=== PATIENT | female | born 1950 | race Caucasian/White ===

== ENCOUNTER → 2018-12-04 | Outpatient (CLI) | payer OTHER, MEDICARE | LOC: FIMAGING 10:57 | PROVIDERS: ATTEND Physician Assistant | DX: M51.36 Other intervertebral disc degeneration, lumbar region (principal); M48.061 Spinal stenosis, lumbar region without neurogenic claudication; M43.16 Spondylolisthesis, lumbar region; M53.86 Other specified dorsopathies, lumbar region; R93.5 Abnormal findings on diagnostic imaging of other abdominal regions, including retroperitoneum ==

== ENCOUNTER → 2019-01-05 | Outpatient (CLI) | payer OTHER, MEDICARE | LOC: FIMAGING 09:32 | PROVIDERS: ATTEND Internal Medicine | DX: K76.9 Liver disease, unspecified (principal); K86.9 Disease of pancreas, unspecified; I70.0 Atherosclerosis of aorta ==

== ENCOUNTER → 2019-01-11 | Outpatient (CLI) | payer OTHER, MEDICARE ==
[~2019-01-11] MED LIST: IOPAMIDOL (ISOVUE-300) 100 ML BTL ONE
== END ==
LOC: FIMAGING 09:18
PROVIDERS: ATTEND Internal Medicine
DX: K76.9 Liver disease, unspecified (principal); K83.8 Other specified diseases of biliary tract; K86.9 Disease of pancreas, unspecified
CPT/HCPCS: 74177; Q9967; 82565-PO

== ENCOUNTER 2019-03-01 07:15 | Inpatient (IN) | payer OTHER, MEDICARE ==
[2019-03-08] MEDS ORDERED: ceFAZolin 2 GM/DEXTROSE 100 ML IV ONE (06:05)
[2019-03-08] MEDS ORDERED: ACETAMINOPHEN 500 MG TAB PO ONE (06:05)
[2019-03-08] MEDS ORDERED: GABAPENTIN 300 MG CAP PO ONE (06:05)
[2019-03-08] MEDS ORDERED: LR 1,000 ML IV ONE (06:10)
[2019-03-08] MEDS ORDERED: BUPIVACAINE/EPI 0.25% 30 ML SDV ONE (06:26)
[2019-03-08] MEDS ORDERED: BACITRACIN 50,000 UNITS/10 ML SYR IRR ONE (06:26)
[2019-03-08] MEDS ORDERED: THROMBIN (BOVINE) 20,000 UNIT VIAL TP ONE (06:26)
[2019-03-08] MEDS ORDERED: CHLORHEXIDINE GLUC HIBICLENS 118 ML BTL TP ONE (06:26)
[2019-03-08] MEDS ORDERED: ACETAMN/DIPHENHYDRAMINE 500/25MG TAB PO PRN (06:29)
--- NOTE | 2019-03-08 06:29 | PDHPUP ---
History & Physical Update H&P update statement: This history and physical update is based on an assessment of the patient which was completed after admission or registration (within 24 hours), but prior to the surgery/procedure. H&P update: H&P reviewed & patient examined, no change in patient's condition since H&P completed
--- NOTE | 2019-03-08 06:38 | PDANEPAE ---
ANE Past Medical History - Cardiovascular History Hx Hypertension: No Hx Arrhythmias: No Hx Chest Pain: No Hx Coronary Artery / Peripheral Vascular Disease: Yes Hx CHF / Valvular Disease: Yes Hx Palpitations: No Cardiovascular History Comment: Mitral valve regurgitation, no surgery, no alarm mechanism adjuster follow up. Aortic artery concerns with PCP, pt does not have diagnosis yet. - Pulmonary History Hx COPD: No Hx Asthma/Reactive Airway Disease: No Hx Recent Upper Respiratory Infection: No Hx Oxygen in Use at Home: No Hx Sleep Apnea: No - Neurologic History Hx Cerebrovascular Accident: No Hx Seizures: No Hx Dementia: No - Endocrine History Hx Diabetes: No Hypothyroid: No Hyperthyroid: No Obesity: no - Renal History Hx Renal Disorders: No - Liver History Hx Hepatic Disorders: No - Neurological & Psychiatric Hx Hx Neurological and Psychiatric Disorders: Yes Neurological / Psychiatric History Comment: Mild depression. - Cancer History Hx Cancer: No - Congenital Disorder History Hx Congenital Disorders: No - GI History GERD: no Hx Gastrointestinal Disorders: No - Other Health History Other Health History: None. - Chronic Pain History Chronic Pain: Yes - Surgical History Prior Surgeries: Total R hip replacement ~2003. R RTC surgery ~2012. L thumb/ wrist surgery ~2013. L wrist fracture with hardware and subsequent hardware removal. ~2013 ANE Review of Systems Review of Systems: - Exercise capacity Exercise capacity: >=4 METS, limited by disability METS (RN): 4 METS ANE Patient History - Allergies Allergies/Adverse Reactions: celecoxib [From Celebrex] Allergy (Verified 03/08/19 07:03) Hives Sulfa (Sulfonamide Antibiotics) Allergy (Verified 02/28/19 14:44) Rash - Home Medications Home Medications: Diclofenac Sodium [Voltaren-XR] 100 mg PO DAILY PRN 02/28/19 [Last Taken ] Meloxicam 7.5 - 15 mg PO DAILY PRN 02/28/19 [Last Taken 03/02/19] buPROPion XL [Wellbutrin Xl] 150 mg PO DAILY 02/28/19 [Last Taken 03/08/19] Acetaminophen [Tylenol Extra Strength] 1,000 mg PO DAILY 03/03/19 [Last Taken ] Acetamn/Diphenhydramine 500/25 [Tylenol PM (*)] 1 each PO HS PRN 03/03/19 [Last Taken 03/02/19] - Anes Hx Anes Hx: no prior problems - Smoking Hx Smoking Status: Never smoked Marijuana use: No - Alcohol Use Alcohol Use: Occasionally - Family Anes Hx Family Anes Hx: neg - N/A Family Hx Anesthesia Complications: Unknown. ANE Labs/Vital Signs - Vital Signs Height: 167.64 cm Weight: 54.431 kg ANE Physical Exam - Airway Neck exam: FROM Mallampati Score: Class 2 Mouth exam: normal dental/mouth exam - Pulmonary Pulmonary: no respiratory distress, no rales or rhonchi, clear to auscultation - Cardiovascular Cardiovascular: regular rate and rhythym, no murmur, rub, or gallop - ASA Status ASA Status: II ANE Anesthesia Plan Anesthesia Plan: general endotracheal anesthesia Total IV Anesthesia: No
[2019-03-08] MEDS ORDERED: MIDAZOLAM 2 MG/2 ML VIAL IVP ONE (06:54)
[2019-03-08] MEDS ORDERED: fentaNYL 100 MCG/2 ML INJ ONE ×3 (07:11→11:39)
[2019-03-08] MEDS ORDERED: PROPOFOL 200 MG/20 ML VIAL ONE (07:12)
[2019-03-08] MEDS ORDERED: ONDANSETRON 4 MG/2 ML VIAL ONE (07:13)
[2019-03-08] MEDS ORDERED: DEXAMETHASONE 4 MG/ML VIAL ONE (07:13)
[2019-03-08] MEDS ORDERED: PROPOFOL/EMULSION 500 MG/50 ML BOTTLE IV ONE (07:13)
[2019-03-08] MEDS ORDERED: ROCURONIUM 50 MG/5 ML VIAL ONE (07:13)
[2019-03-08] MEDS ORDERED: LIDOCAINE 2% 5 ML SDV ONE (07:18)
[2019-03-08] MEDS ORDERED: REMIFENTANIL HCL 1 MG VIAL ONE (07:36)
[2019-03-08] MEDS ORDERED: diphenhydrAMINE 25 MG CAP PO PRN (07:53)
[2019-03-08] MEDS ORDERED: MAGNESIUM HYDROXIDE 30 ML UDCUP PO PRN (07:53)
[2019-03-08] MEDS ORDERED: BISACODYL 10 MG SUPP PR PRN (07:53)
[2019-03-08] MEDS ORDERED: HYDROmorphONE/DILAUDID 1 MG/ML INJ IVP PRN (07:53)
[2019-03-08] MEDS ORDERED: ONDANSETRON DISINTEGRATING 4 MG TAB PO PRN (07:53)
[2019-03-08] MEDS ORDERED: ONDANSETRON 4 MG/2 ML VIAL IVP PRN ×2 (07:53→07:57)
[2019-03-08] MEDS ORDERED: LACTULOSE 20 GM/30 ML UDCUP PO PRN (07:53)
[2019-03-08] MEDS ORDERED: morphINE PCA 30 MG/30 ML PCA IV PRN (07:53)
[2019-03-08] MEDS ORDERED: NALOXONE HCL 0.4 MG/ML INJ IVP PRN ×2 (07:53→07:57)
[2019-03-08] MEDS ORDERED: PROMETHAZINE HCL 25 MG/ML INJ IVP PRN (07:57)
[2019-03-08] MEDS ORDERED: ACETAMINOPHEN 500 MG TAB PO PRN (07:57)
[2019-03-08] MEDS ORDERED: MEPERIDINE 25 MG/0.5 ML AMP IVP PRN (07:57)
[2019-03-08] MEDS ORDERED: oxyCODONE IR 5 MG TAB PO PRN (07:57)
[2019-03-08] MEDS ORDERED: HYDROCODONE/APAP 5/325 TAB PO PRN (07:57)
[2019-03-08] MEDS ORDERED: LR 500 ML IV PRN (07:57)
[2019-03-08] MEDS ORDERED: PHENYLEPHRINE HCL 100 MCG/ML SYR IVP PRN (07:57)
[2019-03-08] MEDS ORDERED: NS 1,000 ML IV SCH (08:00)
[2019-03-08] MEDS ORDERED: PHENYLEPHRINE HCL 100 MCG/ML SYR ONE (08:08)
[2019-03-08] MEDS ORDERED: ePHEDrine SULFATE 25 MG/5 ML SYR ONE (08:21)
[2019-03-08] MEDS ORDERED: HYDROmorphONE/DILAUDID 1 MG/ML INJ ONE (11:39)
[2019-03-08] MEDS ORDERED: METHOCARBAMOL 750 MG TAB ONE (11:39)
[2019-03-08] MEDS: fentaNYL 100 MCG/2 ML INJ IVP PRN ×2 (11:41→12:04)
[2019-03-08] MEDS: HYDROmorphONE/DILAUDID 1 MG/ML INJ IVP PRN ×3 (11:42→12:58)
--- NOTE | 2019-03-08 11:43 | POSTOPPROG ---
Post Op Note Date of Operation: 03/08/19 Surgeon: Jose Melchor [employer] Manager: JESSICA Kuhn Anesthesiologist: MD Ash Anesthesia: GET(General Endotracheal), Local (Specify) Pre-op Diagnosis: lumbar stenosis/slip at L4/5 Post-op Diagnosis: lumbar stenosis/slip at L4/5 Indication: BLE pain Procedure: TLIF L4/5 Findings: see op report Inf/Abcess present in the surg proc area at time of surgery?: No Depth: Deep Incisional (Fascial) EBL: 100-500 Total fluids administered: see anesthesia record Complications: none Bowel Protocol: No Clean Closure Performed: No Drains: Clay Harper
[2019-03-08] MEDS: METHOCARBAMOL 750 MG TAB PO PRN ×2 (11:45→18:22)
--- NOTE | 2019-03-08 11:47 | SOAPPROG ---
SOAP Progress Note Assessment/Plan: Post Op Visit: S: Awake and alert. NAD. Pt with expected lower back pain O: AFVSS/PERRLA/EOMI no droop CN 2-12 grossly intact +lt touch 5/5 BUE/BLE = CDI GARTH in place A/P: 68 yo female that is s/p TLIF at L4/5 -orders in place -call with any questions or concerns -pt seen by Dr Ruiz santos when out of bed -PT/OT pending -post op xrays pending -GARTH in place Objective: Vital Signs Temp Pulse Resp BP Pulse Ox 36.5 C 62 16 131/96 H 96 03/08/19 06:31 03/08/19 06:31 03/08/19 06:31 03/08/19 06:31 03/08/19 06:31 ICD10 Worksheet Patient Problems: Problems Problem Status Onset Arthrodesis status Acute Lumbar radicular pain Acute Lumbar stenosis Acute - ICD10 Problem Qualifiers (1) Lumbar stenosis (2) Lumbar radicular pain (3) Arthrodesis status
--- NOTE | 2019-03-08 13:03 | POSTANESTH ---
Post Anesthetic Evaluation Cardiovascular Status: Normal, Stable Respiratory Status: Normal, Stable Level of Consciousness/Mental Status: Can Participate in Eval Pain Control: Adequate, Prn Tx Ordered Nausea/Vomiting Control: Adequate, Prn Tx Ordered Complications Possibly Related to Anesthesia: None Noted
--- NOTE | 2019-03-08 13:11 | PDMN ---
Medical Necessity Medical necessity: [facility] IP only surgery; cpt 32129 L4/5 TLIF
[2019-03-08] MEDS: SENNOSIDES/DOCUSATE SODIUM TAB PO SCH ×2 (13:27→21:56)
[2019-03-08] MEDS: buPROPion XL 150 MG TAB PO SCH (13:27)
[2019-03-08] MEDS: FAMOTIDINE 20 MG TAB PO SCH ×2 (13:27→21:53)
[2019-03-08] MEDS: GABAPENTIN 300 MG CAP PO SCH ×2 (13:44→21:53)
[2019-03-08] MEDS: ACETAMINOPHEN 500 MG TAB PO SCH ×2 (13:45→21:52)
[2019-03-08] MEDS: oxyCODONE IR 5 MG TAB PO PRN ×3 (13:47→21:54)
[2019-03-08] MEDS: ceFAZolin 2 GM/DEXTROSE 100 ML IV SCH ×2 (16:00→23:51)
--- NOTE | 2019-03-08 18:31 | GOP ---
[f rep st] OPERATIVE REPORT DATE OF OPERATION: 03/08/2019 SURGEON: Anselmo Melchor MD NEUROSURGEON: Anselmo Melchor MD. ELECTRONIC EQUIPMENT MAINT TECH: NIKO Bentley. PREOPERATIVE DIAGNOSIS: Lumbar spondylolisthesis, lumbar stenosis and bilateral lumbosacral radiculo peri, L4-5. POSTOPERATIVE DIAGNOSIS: Lumbar spondylolisthesis, lumbar stenosis and bilateral lumbosacral radicul opathy, L4-5. PROCEDURE PERFORMED: Posterolateral and intervertebral arthrodesis at L4-5 (80645), posterior nonseg mental instrumentation across a single interspace (37186), placement of biomechanical intervertebral device at L4-5, same-incision bone graft harvest, microscope, spinal stereotaxis. FINDINGS: ESTIMATED BLOOD LOSS: 200 mL. INDICATIONS: Ms. Spear is a 68-year-old with terrible pain radiating into both buttocks. On the lef t is slightly worse than the right, but it does affect her on both sides and an MRI demonstrated yolande re stenosis at the L4-5 level and a spondylolisthesis at L4-5 that was quite significant. She had a rotational listhesis with more subluxation on the right side than on the left and severe right forami nal compromise. There was severe bilateral recess stenosis at L4-5. I suggested a single-level inst rumented fusion at the L4-5 level. She had failed conservative treatment. She wanted to proceed. S he knew there was a chance surgery would fail to eliminate her pain and that there was risk of adjace nt segment disease, additional spine surgery, pseudoarthrosis, nerve injury, spinal fluid leak, infec tion. She understood these risks. She did want to proceed despite them. She also knew there was a chance of screw and hardware malposition and malfunction. She wanted to proceed despite those risks. DESCRIPTION OF PROCEDURE: The patient was taken to the operating room and placed in supine position. General anesthesia was begun. She was flipped prone onto the Clay table. Care was taken to pad all points of contact. Her back was sterilely prepped and draped in the usual fashion. A localizin g x-ray was taken. We made a midline 4.5 cm incision above the L4-5 interspace. The subcutaneous ti ssue was dissected using Bovie cautery down through the fascia and a subperiosteal dissection was mad e down the lamina of L4 and L5. The bilateral hypertrophic L4-5 facet joints were identified. They were in remarkably bad shape. There was terrible facet arthropathy on each side. We shot a [facility] x-ray. We denuded the bilateral hypertrophic facet joints at L4-5 and indeed there was rotational listhesis of L4 on L5, with the right L4 transverse process and pedicle entry site being rotated and subluxed further anteriorly than the side on the left-hand side. We attached the Stealth reference frame to the L4 spinous process, performed an O-arm spin and using frameless Stealth stereotaxy, plac ed pedicle screws bilaterally at L4-5. We placed a 35 mm kelly on the right side, distracted between L 4 and 5 and got nice reduction of the spondylolisthesis. It looked terrific. I then shot an x-ray a nd I was happy with the position, but I wanted a slightly longer kelly, so i went to a 40 mm kelly. I re moved that 35 mm kelly and used it on the left-hand side. I then placed a 40 mm on the right and a 35 mm on the left, distracted only on the right and reduced the rotational subluxation of L4 on L5, and also reduced a lot on the lateral listhesis as well. We then removed all the soft tissue from the zari ne at L4-5 and then harvested the L4 inferior spinous process for autologous grafting purposes. We t hen drilled bilateral of L4-5 and harvested this bone for autologous grafting purposes. Maximino mcdaniel introduced the operative microscope and opened the ligamentum flavum and performed bilateral recess decompressions. We removed the complete right L4-5 facet joint because there was very severe right foraminal stenosis. We performed a left lateral recess decompression, removing only the superior mos t portion of the SAP of L5 on the left-hand side, but we got a great foraminal decompression and a la teral recess decompression. We did preserve the remnant of the L4 IAP on the left-hand side for post erolateral fusion surface at L4-5, in addition to the transverse processes which had been decorticate d. The right-sided transverse processes also had been decorticated. We got great bilateral decompre ssions, swept the L5 nerve root medially from the right-hand side and via the right side, incised the L4-5 disk and removed the disk and the cartilaginous endplates. We roughened the subchondral bone a t L4-5 to create arthrodesis and then put bone autograft and BMP into the disk space at L4-5, followe d by a 7 x 28 mm expandable cage, which was expanded under fluoroscopic guidance. Then shot an x-ray . I was happy with the position of the device. We then decorticated all remaining visible bone post erolaterally bilaterally and placed a subfascial drain. We began to close the incision, but I shot a final AP x-ray and I thought the right side was slightly over-distracted. We then reopened the inci cathi and just released the distraction on the right side at L4-5, shot another x-ray and I was very h appy with the final position. We tightened the cap screws according to company specification, placed a subfascial drain and then closed the incision in multiple layers using Vicryl sutures. A running PDS was placed in the skin itself. There were no complications. The patient tolerated the procedure well. COMPLICATIONS: None. INSTRUMENTATION USED: A [place] Sol[employer] 5.5 mm system with a 7 x 28 mm cage. We used 6.5 x 40 mm s crews at L5 and 6.5 x 45 mm screws at L4. /[id number]/MODL
[2019-03-09] MEDS: GABAPENTIN 300 MG CAP PO SCH ×3 (05:54→20:33)
[2019-03-09] MEDS: oxyCODONE IR 5 MG TAB PO PRN ×2 (05:55→08:30)
[2019-03-09] MEDS: ACETAMINOPHEN 500 MG TAB PO SCH ×3 (07:08→22:14)
--- NOTE | 2019-03-09 07:30 | NEUSURGPN ---
Date of Surgery: 03/08/19 Post Op Day: 1 Assessment/Plan: Assessment: 68 yo female that is s/p TLIF at L4/5 POD #1 Plan: -s/p TLIF L4/5: doing well this am. Pt with expected lower back pain -orders in place -call with any questions or concerns -pt seen by Dr Melchor -harshad when out of bed -PT/OT pending -post op xrays pending -GARTH in place -pt seen by Dr Melchor as well Subjective: Awake and alert. Pt with expected lower back pain. No new events. Sitting in bed Objective: AFVSS/PERRLA/EOMI no droop CN 2-12 grossly intact +lt touch 5/5 BUE/BLE = CDI GARTH in place Neuro Check Frequency: per routine Urinary Catheter in Place: No Catheter Insertion Date: 03/08/19 - Physician Discussed Patient with : Ruiz Patient Seen by : Ruiz Neurosurgery Physical Exam - Vitals, I&O, Labs I and O 03/08/19 03/09/19 03/10/19 05:59 05:59 05:59 Intake Total 3650 Output Total 4580 Balance -930 Weight 54.431 kg Intake: Oral (ml) 350 IV Intake (ml) 2000 IV Infused (ml) 1300 Ns 1,000 ml @ 75 mls/hr 1200 IV CONT RAQUEL Rx#: [id number] ceFAZolin 2 GM/DEXTROSE 100 100 ml @ 200 mls/hr IV Q8H RAQUEL Rx#:[id number] Output: Urine (ml) 4150 Catheter 3550 Toilet 600 Estimated Blood Loss (ml) 200 GARTH Drain Output (ml) 230 Back Clay Harper 230 Other: Intake Quantity Yes Sufficient Number of Voids Toilet 1 Vital Signs Temp Pulse Resp BP Pulse Ox 36.7 C 72 16 110/64 98 03/09/19 04:00 03/09/19 04:00 03/09/19 04:00 03/09/19 04:00 03/09/19 04:00 Laboratory Results 03/09/19 04:20 03/09/19 05:20 ICD10 Worksheet Patient Problems: Problems Problem Status Onset Arthrodesis status Acute Lumbar radicular pain Acute Lumbar stenosis Acute - ICD10 Problem Qualifiers (1) Lumbar stenosis (2) Lumbar radicular pain (3) Arthrodesis status
[2019-03-09] MEDS: METHOCARBAMOL 750 MG TAB PO PRN ×3 (08:08→15:34)
[2019-03-09] MEDS: SENNOSIDES/DOCUSATE SODIUM TAB PO SCH ×2 (08:11→20:33)
[2019-03-09] MEDS: buPROPion XL 150 MG TAB PO SCH (08:11)
[2019-03-09] MEDS: POLYETHYLENE GLYCOL 3350 17 GM PKT PO PRN (08:13)
[2019-03-09] MEDS: FAMOTIDINE 20 MG TAB PO SCH ×2 (08:14→20:32)
[2019-03-09] MEDS: HYDROmorphONE/DILAUDID 2 MG TAB PO PRN ×2 (12:33→20:39)
[2019-03-09] MEDS: HYDROCODONE/APAP 5/325 TAB PO PRN ×2 (14:21→15:35)
--- NOTE | 2019-03-09 14:56 | ASMTCMCOM ---
CM Note CM Note Notes: Patient is POD #1 TLIF L4/5. She is normally independent and lives with her . She is open to any recommendations regarding therapy. PT/OT currently recommending home with outpatient therapy. I anticipate d/c tomorrow if pain controlled. Current CM Discharge plan: home with outpatient f/u Date Signed: 03/09/2019 02:55 PM Electronically Signed By:Annamarie Lopez RN
[2019-03-10] MEDS: GABAPENTIN 300 MG CAP PO SCH ×3 (05:43→21:22)
[2019-03-10] MEDS: HYDROmorphONE/DILAUDID 2 MG TAB PO PRN (05:49)
[2019-03-10] MEDS: ACETAMINOPHEN 500 MG TAB PO SCH ×3 (06:06→21:23)
[2019-03-10] MEDS: oxyCODONE IR 5 MG TAB PO PRN (06:22)
--- NOTE | 2019-03-10 08:24 | SOAPPROG ---
SOAP Progress Note Assessment/Plan: Assessment: Post Op Day: 2 Assessment/Plan: Assessment: 68 yo female that is s/p TLIF at L4/5 POD #2. Doing well -lumbar xrays show well positioned hardware Plan: -advance activity as tolerated -call with any questions or concerns -brace when out of bed -PT/OT -GARTH removed this AM Subjective: Awake and alert. Pt with expected lower back pain. No new events. Objective: AFVSS/PERRLA/EOMI no droop CN 2-12 grossly intact +lt touch 5/5 BUE/BLE = CDI Neuro Check Frequency: per routine Urinary Catheter in Place: No Objective: Vital Signs Temp Pulse Resp BP Pulse Ox 37.6 C 92 16 124/67 H 95 03/10/19 07:32 03/10/19 07:32 03/10/19 07:32 03/10/19 07:32 03/10/19 07:32 Laboratory Results 03/09/19 04:20 03/09/19 05:20 03/09/19 03/10/19 03/11/19 05:59 05:59 05:59 Intake Total 3650 1650 Output Total 4580 12 Balance -930 1638 ICD10 Worksheet Patient Problems: Problems Problem Status Onset Arthrodesis status Acute Lumbar radicular pain Acute Lumbar stenosis Acute
[2019-03-10] MEDS: SENNOSIDES/DOCUSATE SODIUM TAB PO SCH ×2 (08:37→21:23)
[2019-03-10] MEDS: FAMOTIDINE 20 MG TAB PO SCH ×2 (08:37→21:22)
[2019-03-10] MEDS: buPROPion XL 150 MG TAB PO SCH (08:38)
[2019-03-10] MEDS: POLYETHYLENE GLYCOL 3350 17 GM PKT PO PRN (08:38)
[2019-03-10] MEDS: METHOCARBAMOL 750 MG TAB PO PRN ×4 (08:38→21:23)
--- NOTE | 2019-03-10 15:22 | ASMTCMCOM ---
CM Note CM Note Notes: CM discussed case with Hortencia MERCADO, currently monitoring pain, plan continues to discharge home independent when medically stable. CM to follow. D/C Plan: Independent Date Signed: 03/10/2019 03:21 PM Electronically Signed By:Elizabeth Cooper
[2019-03-11] MEDS: GABAPENTIN 300 MG CAP PO SCH ×2 (06:19→13:47)
[2019-03-11] MEDS: ACETAMINOPHEN 500 MG TAB PO SCH ×2 (06:19→13:47)
--- NOTE | 2019-03-11 06:55 | NEUSURGPN ---
Date of Surgery: 03/08/19 Post Op Day: 3 Assessment/Plan: Assessment: 68 yo female that is s/p TLIF at L4/5 POD #3. -lumbar xrays show well positioned hardware Plan: -advance activity as tolerated -Pain control, currently morphine IR 15mg q4 hours -call with any questions or concerns -brace when out of bed -PT/OT -Dispo: home later today if pain controlled dw Dr. Melchor Subjective: doing well. back pain controlled. Ready to go home today. wants to take a shower. Objective: AFVSS/PERRLA/EOMI no droop CN 2-12 grossly intact +lt touch 5/5 BUE/BLE = CDI Catheter Insertion Date: 03/08/19 - Physician Discussed Patient with : Ruiz Neurosurgery Physical Exam - Vitals, I&O, Labs I and O 03/10/19 03/11/19 03/12/19 05:59 05:59 05:59 Intake Total 1650 Output Total 12 Balance 1638 Intake: Oral (ml) 1650 Output: Urine (ml) 2 Toilet 2 GARTH Drain Output (ml) 10 Back Clay Harper 10 Other: Intake Quantity Yes Yes Sufficient Number of Voids Toilet 2 1 Number of Stools Toilet 0 0 Vital Signs Temp Pulse Resp BP Pulse Ox 37.6 C 93 16 127/73 H 97 03/10/19 23:37 03/10/19 23:37 03/10/19 23:37 03/10/19 23:37 03/10/19 23:37 Laboratory Results 03/09/19 04:20 03/09/19 05:20 ICD10 Worksheet Patient Problems: Problems Problem Status Onset Arthrodesis status Acute Lumbar radicular pain Acute Lumbar stenosis Acute
[2019-03-11 07:46] VITALS: BP 112/66
[2019-03-11] MEDS ORDERED: ENOXAPARIN 40 MG/0.4 ML SYR SC SCH (09:00)
[2019-03-11] MEDS: buPROPion XL 150 MG TAB PO SCH (09:48)
[2019-03-11] MEDS: SENNOSIDES/DOCUSATE SODIUM TAB PO SCH (09:48)
[2019-03-11] MEDS: FAMOTIDINE 20 MG TAB PO SCH (09:49)
[2019-03-11] MEDS: METHOCARBAMOL 750 MG TAB PO PRN (13:51)
--- NOTE | 2019-03-11 15:34 | ASDISCHSUM ---
Discharge Information Plan Status:Home with No Needs Medically Cleared to Leave: Discharge Date: D/C Disposition:Home Health Service [facility] D/C Disposition:Home, Routine, Self-Care Projected Discharge Date: Transportation at D/C:Family Discharge Delay Reason: Follow-Up Date: Discharge Slot: Final Diagnosis: Placement Information Patient Contact Information Contact Name:NICO Relationship: Address:[address] City:[place] Alternate Phone: State/Zip Code:[place] [address] Email: Financial Information Financial Class:Medicare Primary Plan Desc:MEDICARE INPATIENT Primary Plan Number:[id number] Secondary Plan Desc:[employer]/MDR SUPPLEMENT Secondary Plan Number:[id number] Assessment Information LACE LACE Length of stay for Answers: 3 days current admission Acuity / Level of Answers: Yes Care: Did the patient have an inpatient admission? Comorbidities - select Answers: Congestive heart failure all that apply Coronary Artery Disease Opioid dependence / Chronic pain # of Emergency department Answers: 0 visits in the last 6 months Social determinants Answers: Mental health diagnosis (anxiety, depression, pers onality disorders, etc.) Score: 17 Date Signed: 03/11/2019 03:32 PM Electronically Signed By:Melvina Sullivan [facility] CM Progress Note CM Note CM Note Notes: Patient is POD #1 TLIF L4/5. She is normally independent and lives with her . She is open to any recommendations regarding therapy. PT/OT currently recommending home with outpatient therapy. I anticipate d/c tomorrow if pain controlled. Current CM Discharge plan: home with outpatient f/u Date Signed: 03/09/2019 02:55 PM Electronically Signed By:Annamarie Lopez RN [facility] CM Progress Note CM Note CM Note Notes: CM discussed case with Hortencia MERCADO, currently monitoring pain, plan continues to discharge home independent when medically stable. CM to follow. D/C Plan: Independent Date Signed: 03/10/2019 03:21 PM Electronically Signed By:Elizabeth Cooper Intervention Information
== END 2019-03-11 15:46 | disposition home or self-care (01) | DRG 455 ==
LOC: F3N 03-08 05:39
PROVIDERS: ADMIT Neurological Surgery; ATTEND Neurological Surgery
PROC: 0SG00AJ Fusion of Lumbar Vertebral Joint with Interbody Fusion Device, Posterior Approach, Anterior Column, Open Approach (ICD-10-PCS; principal; 2019-03-08 07:15)
PROC: 0SG00J1 Fusion of Lumbar Vertebral Joint with Synthetic Substitute, Posterior Approach, Posterior Column, Open Approach (ICD-10-PCS; principal; 2019-03-08 07:15)
PROC: 3E0U0GB Introduction of Recombinant Bone Morphogenetic Protein into Joints, Open Approach (ICD-10-PCS; principal; 2019-03-08 07:15)
PROC: 01NB0ZZ Release Lumbar Nerve, Open Approach (ICD-10-PCS; principal; 2019-03-08 07:15)
PROC: 0ST20ZZ Resection of Lumbar Vertebral Disc, Open Approach (ICD-10-PCS; principal; 2019-03-08 07:15)
DX: M51.36 Other intervertebral disc degeneration, lumbar region (principal); M43.16 Spondylolisthesis, lumbar region; M48.062 Spinal stenosis, lumbar region with neurogenic claudication; Z96.641 Presence of right artificial hip joint; G89.29 Other chronic pain; I34.0 Nonrheumatic mitral (valve) insufficiency
CPT/HCPCS: 97116-GP; 97161-GP; 97165-GO; 97535-GO; C1713; J0690; J1100; J1170; J1650; J2250; J2270; J2370; J2405; J2704; J3010

== ENCOUNTER → 2019-04-28 | Outpatient (CLI) | payer OTHER, MEDICARE | LOC: FIMAGING 14:13 ==

== ENCOUNTER → 2019-05-09 | Outpatient (CLI) | payer OTHER, MEDICARE | LOC: FIMAGING 10:05 ==